=== PATIENT | male | born 1995 | race Caucasian/White ===

== ENCOUNTER 2017-07-31 16:44 | Emergency (ER) | payer OTHER ==
--- NOTE | 2017-07-31 17:00 | EDPHY ---
H & P Stated Complaint: Neck/head throbbing during sex; nearly passed out, neuro changes Time Seen by Provider: 07/31/17 16:59 - Personal History Current Tetanus Diphtheria and Acellular Pertussis (TDAP): Yes - Medical/Surgical History Other PMH: healthy - Social History Smoking Status: Never smoked Constitutional: Initial Vital Signs Temperature (C) 36.5 C 07/31/17 16:45 Heart Rate 65 07/31/17 16:45 Respiratory Rate 16 07/31/17 16:45 Blood Pressure 137/72 H 07/31/17 16:45 O2 Sat (%) 98 07/31/17 16:45 O2 Delivery Mode Room Air Allergies/Adverse Reactions: No Known Allergies Allergy (Unverified 07/31/17 16:50) Home Medications: Medication Instructions Recorded NK [No Known Home Meds] 07/31/17 Medical Decision Making - Diagnostics Imaging Results: Imaging Impressions Brain MRI 07/31/17 17:50 Impression: Normal. Results discussed with Dr. Hill. 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 This could be related to vasculitis or embolic phenomenon. Is there any history of endocarditis, left atrial myxoma or systemic autoimmune disease? Results discussed with Dr. Hill at 7:20 pm. Impression: Imaging: Discussed imaging studies w/ food taster Radiologist, I viewed and interpreted images myself ED Course/Re-evaluation: CHIEF COMPLAINT: Head and neck pain while having sex HISTORY OF PRESENT ILLNESS: The patient is a 21 y/o male complaining of acute onset neck and posterior head pain that began suddenly while having sex with his girlfriend today. While standing in the shower having sex and just prior to orgasm he had acute, severe throbbing pain that began in the base of his neck and radiated up into the back of his head. He felt like he was blacking out, slid to the floor, had blurry vision, and was unable to speak and respond to his girlfriend for about 3 minutes though he denies losing consciousness or falling. He denies any trauma preceding the incident. No recent illness. He is normally healthy. The patient reports he has a severe needle phobia and is very anxious about any interventions here requiring a needle. He says, "I know this is a personal flaw with myself but I'd rather walk out of here than have any needles." REVIEW OF SYSTEMS: A 10 point review of systems was performed and is negative with the exception of the elements mentioned in the history of present illness. PHYSICAL EXAM: HR, BP, O2 Sat, RR. Temp noted General Appearance: Alert, well hydrated, appropriate, and non-toxic appearing. Head: Atraumatic without scalp tenderness or obvious injury Eyes: Pupils equal, round, reactive to light and accommodation, EOMI, no trauma , no injection. Ears: Clear bilaterally, no perforation, normal landmarks Nose: Atraumatic, no rhinorrhea, clear. Throat: There is no erythema or exudates, no lesions, normal tonsils, mucus membranes moist. Neck: Supple, nontender, no lymphadenopathy. Respiratory: No retractions, no distress, no wheezes, and no accessory muscle use. Lungs are clear to auscultation bilaterally. Cardiovascular: Regular rate and rhythm, no murmurs, rubs, or gallops. Good capillary refill all extremities. Gastrointestinal: Abdomen is soft, nontender, non-distended, no masses, no rebound, no guarding, no peritoneal signs. Musculoskeletal: Normal active ROM of all extremities, atraumatic. Neurological: Alert, appropriate, and interactive. The patient has non-focal cranial nerves, motor, sensory, and cerebellar exam. Skin: No rashes, good turgor, no nodules on palpation. Past medical history: Lower back injury; severe needle phobia Past surgical history: Denies Family history: Noncontributory Social history: Has girlfriend. Lives in [place]. 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 MEDICAL DECISION MAKING: This is a healthy 21 y/o male who presents after acute severe neck pain and headache just prior to orgasm during sex today. Presentation is concerning for sentinel event with exertion for brain aneurysm. Heavily recommended head CT with contrast to evaluate for this. However, he has a severe needle phobia and states he would run out of the department if we attempted to place an IV. Myself and the RN had long discussion about the indications for neuro imaging and possible lumbar puncture with the patient, but he is adamant that he cannot tolerate any interventions that require needles nor medications like Ativan or Ketamine to sedate him during the procedure unless they would knock him out completely. He states, "that makes a lot of sense, I'm just frustrated with myself." "I realize the needle phobia is so bad I would rather . I'm more afraid of a needle than being killed. I'd rather you chop my arm off with a machete right now than get an IV. Where I'm at right now I just can't consciously agree to it. " Consulted with radiologist regarding CT with contrast vs MRI without contrast. MRI is not as sensitive is, but can still evaluate for aneurysm with MRI brain without contrast and MRA head without contrast. Discussed this option with the patient and he agrees to MRI. 1919: MRI shows: possible tiny left MCA peripheral aneurysm. 1926: Consulted with Dr. Doe, neurology. He states without hemorrhage and the location of patient's symptoms do not suggest acute issue and this is likely an incidental finding. He recommends outpatient follow up with their office. Discussed results and follow up instructions with the patient. I answered all his questions. He is comfortable with plan. Return precautions discussed. Departure - Departure Disposition: Home, Routine, Self-Care Clinical Impression: Thunderclap headache, Severe needle phobia, Headache associated with orgasm Condition: Serious Instructions: Acute Headache (ED), Specific Phobia (ED) Additional Instructions: Follow up with neurosurgeon in the next week for reevaluation. Follow up with [facility] as soon as possible to discuss your needle phobia. Please return to the ED for any worsening or recurrence of symptoms. Referrals: [facility] [Other] - As per Instructions [facility],. [Clinic] - As per Instructions Nestor Doe MD [Medical Doctor] - As per Instructions Report Scribed for: Armando Hill Report Scribed by: Cande Gee Date of Report: 07/31/17 Time of Report: 17:13
[2017-07-31 18:49] VITALS: TEMP 98.1
[2017-07-31 19:53] VITALS: BP 116/69; PULSE 67; RESP 16
[2017-07-31 19:54] VITALS: O2SAT 97
== END 2017-07-31 19:54 | disposition home or self-care (01) ==
DX: G44.53 Primary thunderclap headache (principal); F40.231 Fear of injections and transfusions; G44.82 Headache associated with sexual activity